=== PATIENT | male | born 1995 | race Two or more races ===

== ENCOUNTER 2019-02-27 16:01 | Emergency (ER) | payer SELFPAY ==
[~2019-02-27] VITALS: Ht 165.1 cm; Wt 90.7 kg
[2019-02-27] MEDS ORDERED: NKM (16:09)
[2019-02-27 16:30] VITALS: BP 121/76
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
--- NOTE | 2019-02-27 18:38 | Diagnostic Imaging Report ---
Indication: Back pain Comparison: None Findings: 2 views of the thoracic spine were obtained. Normal alignment is demonstrated. Vertebral body heights and intervertebral disc heights are normal. The posterior elements including the facets are unremarkable. Soft tissues are unremarkable. Impression: No acute injury appreciated.
[2019-02-27] MEDS ORDERED: LIDODERM700 M1 TOPIC (18:45)
[2019-02-27] MEDS ORDERED: ROBAXIN-750750 MG PO (18:45)
[2019-02-27] MEDS ORDERED: IBUPROFEN600 MG ORAL (18:45)
[2019-02-27 18:52] VITALS: BP 119/75
== END 2019-02-27 18:52 | disposition home or self-care (01) ==
LOC: EMR 17:10
DX: M54.6 Pain in thoracic spine (principal); S29.012A Strain of muscle and tendon of back wall of thorax, initial encounter; R51 Headache; V49.9XXA Car occupant (driver) (passenger) injured in unspecified traffic accident, initial encounter; Y93.89 Activity, other specified; Y92.411 Interstate highway as the place of occurrence of the external cause
CPT/HCPCS: 72070; 99283